=== PATIENT | female | born 1970 | race Caucasian/White ===

== ENCOUNTER 2018-12-06 12:30 | Emergency (ER) | payer OTHER ==
[~2018-12-06] VITALS: Ht 152.4 cm; Wt 65.4 kg
[2018-12-06 12:35] VITALS: BP 135/77; Ht 152.4 cm; Wt 65.4 kg
== END 2018-12-06 13:30 | disposition home or self-care (01) ==
LOC: ED 12:30
DX: R33.9 Retention of urine, unspecified (principal); Z98.890 Other specified postprocedural states; Z90.49 Acquired absence of other specified parts of digestive tract